=== PATIENT | female | born 1965 | race Caucasian/White ===

== ENCOUNTER 2017-03-25 19:00 | Emergency (ER) | payer OTHER ==
[2017-03-25 21:06] LABS: BASO % 0.2 % (0.1-1.2); EOS % 0.4 % (0.7-5.8); GRAN # 6.5 10_X3_uL (1.6-6.1); GRAN % 71.4 % (34.0-71.1); HEMATOCRIT 42.4 % (34-45); HEMOGLOBIN 14.9 g/dL (11.2-15.7); LYMPH # 1.7 10_X3_uL (1.2-3.7); LYMPH % 18.6 % (19.3-51.7); MEAN CORPUSCULAR HEMOGLOBIN 31.4 pg (27.0-33.0); MEAN CORPUSCULAR HGB CONC 35.1 g/dL (32.0-36.0); MEAN CORPUSCULAR VOLUME 89.3 fL (79-95); MEAN PLATELET VOLUME 9.6 fl (7.5-11.5); MONO # 0.9 10_X3_uL (0.2-0.9); MONO % 9.4 % (4.7-12.5); PLATELET COUNT 192 x10_3/uL (182-369); RED BLOOD COUNT 4.75 x10_6/uL (3.9-5.2); WHITE BLOOD COUNT 9.2 x10_3/uL (4.0-10.0)
[2017-03-25 21:19] LABS: ALKALINE PHOSPHATASE 65 U/L (50-136); ALT/SGPT 24 U/L (3.5-33.9); AST/SGOT 23 U/L (7.04-26.96); BILIRUBIN,TOTAL 0.37 mg/dL (0.0-1.0); BLOOD UREA NITROGEN 11 mg/dL (7-18); CALCIUM 8.8 mg/dL (8.7-10.7); CARBON DIOXIDE 24 mmol/L (21-32); CREATININE 0.8 mg/dL (0.6-1.3); GLUCOSE,RANDOM 115 mg/dL (70-99); POTASSIUM 3.5 mmol/L (3.5-5.1); SODIUM 134 mmol/L (136-145); TOTAL PROTEIN 6.6 gm/dL (6.4-8.2)
[2017-03-25 21:52] LABS: URINE BILIRUBIN NEGATIVE (NEGATIVE); URINE BLOOD 2+ (NEGATIVE); URINE GLUCOSE (UA) NORMAL (NORMAL); URINE KETONE NEGATIVE (NEGATIVE); URINE LEUKOCYTE ESTERASE 2+ (NEGATIVE); URINE NITRATE NEGATIVE (NEGATIVE); URINE PROTEIN TRACE (NEGATIVE); UROBILINOGEN NORMAL mg/dL (<1.0)
[2017-03-25 22:03] LABS: URINE BACTERIA 1+ (NONE SEEN); URINE SQUAMOUS EPITHELIAL CELL 0-10 /[HPF] (NONE SEEN)
== END 2017-03-25 22:09 | disposition home or self-care (01) ==
LOC: ER 19:00
PROVIDERS: Emergency Medicine
DX: N39.0 Urinary tract infection, site not specified (principal); J02.0 Streptococcal pharyngitis; I10 Essential (primary) hypertension; M25.50 Pain in unspecified joint; Z98.51 Tubal ligation status; F17.210 Nicotine dependence, cigarettes, uncomplicated; Z79.891 Long term (current) use of opiate analgesic; Z79.899 Other long term (current) drug therapy
CPT/HCPCS: 36415; 71020; 80053; 81001; 83605; 85025; 87040; 87086; 87186; 87400; 87880; 96372; 99070; 99283-25